=== PATIENT | female | born 1935 | race Caucasian/White ===

== ENCOUNTER 2020-01-25 13:48 | Inpatient (IN) | payer OTHER, MEDICARE, SELFPAY ==
[2020-01-25 13:55] VITALS: BP 158/57; PULSE 60; RESP 16; O2SAT 99; BMI 39.0
--- NOTE | 2020-01-25 15:34 | XR_ITS ---
WS: [id number] XR chest 1V portable [id number] REASON FOR EXAM: debility FINDINGS: The chest is unchanged compared to previous examination of 05/07/2017. Pacemaker in place over the left chest with leads to the right atrium and right ventricular apex. Mil d cardiac enlargement. Coronary stents. Calcified granulomatous changes in both hemithoraces. No active pulmonary parenchymal or pleural dise ase is noted. XR/XR chest 1V portable [id number] IMPRESSION: No acute chest abnormality.
--- NOTE | 2020-01-25 15:34 | CT_ITS ---
WS: [id number] CT ABDOMEN AND PELVIS NONCONTRAST HISTORY: sacral decubitus ulcer TECHNIQUE: Imaging performed through the abdomen and pelvis. Coronal and sagittal reformats are submi tted. All CT scans at [facility] use at least one of these dose optimization techniques: automated exposure control; mA and/or kV adjustment per patient size (includes targeted exams where d ose is matched to clinical indication); or iterative reconstruction. DLP: 1303.25 mGy.cm COMPARISON: 12/11/2017 Lower thorax: Lung bases are clear. Moderate cardiomegaly. Mitral annular calcification and small her pam. Artifact through the upper abdominal structures. No liver abnormality is detected. Gallbladder is sli ghtly contracted. Normal spleen. Mild pancreatic atrophy. No renal mass. There is extensive calcifica tion within a nondilated aorta. Vascular calcifications within each renal pelvis. No obstruction. Moderate distention of the stomach with air and food products. Mild diffuse constipation. No free flu id or ascites. Well-distended urinary bladder. By history there is a sacral decubitus ulcer. There is soft tissue thickening over the coccyx extending to the gluteal cleft. No destruction of the bone. P rior lumbar fusion surgery with large posterior laminectomy defects. Severe degenerative changes at t he hip joints bilaterally. Subchondral cystic changes with loss of the joint spaces. CT/CT abdomen pelvis wo con [id number] IMPRESSION: 1. No acute abdominal or pelvic abnormalities are identified. 2. Fluid and food distention of the stomach and diffuse constipation. 3. Limited evaluation of the sacral ulcer. The entire ulcerative tract is not entirely included. No evidence for osteomyelitis.
[2020-01-25 17:25] LABS: Basophils % 0.8 %; Eosinophils # 0.1 10^3/uL (0.0-0.8); Eosinophils % 1.9 %; Hematocrit 37.3 % (37.0-47.0); Hemoglobin 12.1 g/dL (11.5-15.3); Lymphocytes # 0.9 10^3/uL (0.8-4.8); Lymphocytes % 16.4 %; Mean Corpuscular HGB Conc 32.4 g/dL (30.0-36.0); Mean Corpuscular Hemoglobin 28.8 pg (28.0-34.0); Mean Corpuscular Volume 88.8 fL (81-99); Mean Platelet Volume 11.8 fL (7.4-10.4); Monocytes # 1.2 10^3/uL (0.2-0.9); Monocytes % 23.3 %; Neutrophils # 2.98 10^3/uL (1.8-7.7); Neutrophils % 56.8 %; Nucleated Red Blood Cells % 0 %; Platelet Count 158 10^3/cmm (130-400); Red Cell Distribution Width 13.2 % (12.1-15.1); White Blood Count 5.2 10^3/uL (4.0-10.0)
--- NOTE | 2020-01-25 17:29 | W.ED.RECABL ---
HPI - Recheck/Abnormal Lab/Rx General: Chief Complaint: Recheck/Abnormal Lab/Rx Stated Complaint: CONFUSION Time Seen by Provider: 01/25/20 14:21 Source: patient and EMS Mode of arrival: EMS Limitations: no limitations History of Present Illness: HPI narrative: The patient is an 84-year-old female patient who is on home hospice. From what I can gather she is on hospice for cardiac illness. Her main caregiver is her and he is unfortunately in the hospital on admission for COVID-19 pneumonia. She was apparently in the house and has been essentially bedridden for weeks. She is able to ambulate only short distances using 2 canes, and essentially just moved from the bed to the commode. She has apparently developed some decubitus ulcers and the patient states that she noticed them in the last few days. Home health nurse apparently felt she was confused and called for an ambulance. Review of Systems General: Reports: 10 or more systems reviewed and unremarkable except in HPI and below Const: Reports: malaise; Denies: fever(s), chills or body aches Eyes: Denies: change in vision or blurry vision ENMT: Denies: throat pain, enlarged tonsils, odynophagia, hoarseness, mouth pain or swelling of lips/tongue Card: Denies: palpitations, irregular heart rhythm, edema or swelling of feet/ankles Resp: Denies: dyspnea, productive cough or non-productive cough GI: Denies: abdominal pain, nausea or vomiting : Denies: flank pain, difficulty voiding, dysuria, urinary frequency, urinary urgency or urinary hesitancy Musc: Denies: neck pain, back pain or extremity swelling Skin/Breast: Reports: sores; Denies: rash, pruritus or erythema Neuro: Denies: headache(s), numbness in extremities or weakness in extremities Endo: Denies: polyuria, polydipsia or tired all the time PFSH ED PFSH: Medical History (Updated 01/26/20 @ 00:20 by Cortney Concepcion MD, [facility] [place]) ASHD (arteriosclerotic heart disease) Cardiomyopathy COPD (chronic obstructive pulmonary disease) Diabetes 1.5, managed as type 2 HTN (hypertension) Hypothyroidism Obesity SSS (sick sinus syndrome) Surgical History (Updated 01/25/20 @ 22:24 by Rianna Vallejo MD) Status cardiac pacemaker Family History Father CAD (coronary artery disease) Hypertension Myocardial infarction Mother CAD (coronary artery disease) Hypertension Myocardial infarction Physical Exam Const: COMMON NORMALS: no acute distress, average body habitus, patient oriented x3, no limitations, healthy appearing, alert and well nourished HENMT: COMMON NORMALS: normocephalic, atraumatic and moist oral mucous membranes HEAD & SCALP: normocephalic and atraumatic Neck/C-Spine: COMMON NORMALS: no meningeal signs and no JVD Resp: COMMON NORMALS: normal respiratory effort, No retractions, No use of accessory muscles, clear to auscultation bilaterally and percussion normal AUSCULTATION: clear to auscultation bilaterally PERCUSSION: percussion normal Cardio: COMMON NORMALS: no JVD, regular rate, regular rhythm, S1 normal heart sound present, S2 normal heart sound present, No gallops present (Cardio), No clicks present (Cardio), No murmurs present (Cardio), No rub (Cardio) and Peripheral pulses 2+ throughout RATE: regular rate RHYTHM: regular rhythm HEART SOUNDS: S1 normal heart sound present and S2 normal heart sound present PERIPHERAL PULSES: Peripheral pulses 2+ throughout GI: COMMON NORMALS: Normal to inspection, nondistended, normoactive bowel sounds present, Soft to palpation, non-tender, No hepatosplenomegaly present, no masses and no bruits PALPATION: Yes Soft to palpation and Yes No hepatosplenomegaly present Back/Pelvis: PELVIS: Yes buttock abnormal Buttock abnormal laterality: bilateral Bilateral buttock abnormal details: erythema and other (Bilateral decubitus ulcers, at least stage II. There is surrounding erythema and macerated skin but no obvious drainage noted.) Extremity: COMMON NORMALS: normal to inspection, full ROM, capillary refill normal, no calf tenderness and no pedal edema LEFT LOWER EXTREMITY: Yes ankle joint (Left heel with the decubitus ulcer, stage II) Neuro: COMMON NORMALS: patient oriented x3 SENSORIUM/ORIENTATION: Yes alert MENINGEAL SIGNS: Yes no meningeal signs Skin: COMMON NORMALS: no rashes or lesions noted, no wounds, turgor normal, no jaundice, no petechiae and no mottling GENERAL SKIN EXAM: no rashes or lesions noted and turgor normal Course ED course: Patient who presents to the emergency department has several decubitus ulcers. She is was given intravenous vancomycin in the emergency department and admitted for further evaluation and management Consultations: Consultation #1: Discussed the patient with Dr. Katerine Schaffer, hospitalist and she kindly accepted the patient to her service. Time: 19:58 Vital Signs: Vital signs: Vital Signs Temperature 98.3 F 01/25/20 23:58 Pulse Rate 59 L 01/25/20 23:58 Respiratory Rate 17 01/25/20 23:58 Blood Pressure 169/75 01/25/20 23:58 Pulse Oximetry 98 01/25/20 23:58 MDM - Recheck/Abnormal Lab/Rx MDM Narrative: Medical decision making narrative: 84-year-old female patient who is essentially bedridden and is on home hospice. Her career development facilitator is and he has been in the hospital with COVID-19. She has therefore not received as good daycare she normally gets. She has several decubitus ulcers and is admitted for further evaluation and management. Medical Records: Attestation: I reviewed the patient's medical records. Lab Data: Attestation: I reviewed the patient's lab results. Labs: Lab Results 01/25/20 01/25/20 01/25/20 Range/Units 17:11 17:11 17:11 WBC 5.2 (4.0-10.0) 10^3/ uL RBC 4.20 (4.1-5.3) 10^6/u L Hgb 12.1 (11.5-15.3) g/dL Hct 37.3 (37.0-47.0) % MCV 88.8 (81-99) fL MCH 28.8 (28.0-34.0) pg MCHC 32.4 (30.0-36.0) g/dL RDW 13.2 (12.1-15.1) % Plt Count 158 (130-400) 10^3/c mm MPV 11.8 H (7.4-10.4) fL Neut % (Auto) 56.8 % Lymph % (Auto) 16.4 % [place] % (Auto) 23.3 % Eos % (Auto) 1.9 % Baso % (Auto) 0.8 % Neut # (Auto) 2.98 (1.8-7.7) 10^3/u L Lymph # (Auto) 0.9 (0.8-4.8) 10^3/u L [place] # (Auto) 1.2 H (0.2-0.9) 10^3/u L Eos # (Auto) 0.1 (0.0-0.8) 10^3/u L Baso # (Auto) 0.0 (0.0-0.1) 10^3/u L Nucleated RBC % (a uto) 0 % Nucleated RBCs # 0.0 /100WBC Sodium 132 L (136-145) mmol/L Potassium 3.7 (3.5-5.1) mmol/L Chloride 94 L (98-107) mmol/L Carbon Dioxide 26 (22-29) mmol/L Anion Gap 15.7 (5-19) BUN 44 H (8-23) mg/dL Creatinine 1.5 H (0.5-0.9) mg/dL GFR Calculation Not Reportable Glucose 464 H (65-115) mg/dL Calculated Osmolal ity 305 H (285-295) mOsm/k g Lactate 1.9 (0.5-2.2) mmol/L Calcium 8.5 (8.5-10.5) mg/dL Total Bilirubin 0.3 (0.15-1.2) mg/dL AST 19 (0-32) U/L ALT 18 (0-33) U/L Alkaline Phosphata se 111 H (35-105) IU/L Creatine Kinase 178 (26-192) U/L C-Reactive Protein 21.6 H (0.0-4.9) mg/L Total Protein 6.0 L (6.6-8.7) g/dL Albumin 3.6 (3.5-5.2) g/dL Globulin 2.4 (1.3-4.6) g/dL Lipase 29 (13-60) U/L Procalcitonin 0.17 (0-0.5) ng/mL Urine Color (Yellow) Urine Appearance (CLEAR) Urine pH (5-7) Ur Specific Gravit y (1.005-1.030) Urine Protein (Negative) Urine Glucose (UA) (Normal) Urine Ketones (Negative) Urine Blood (Negative) Urine Nitrate (Negative) Urine Bilirubin (Negative) Urine Urobilinogen (Negative) mg/dL Ur Leukocyte Daija ase (Negative) Urine RBC (0-2) /hpf Urine WBC (0-5) /hpf Ur Squamous Epith Cells (0-5) /hpf Amorphous Sediment Urine Bacteria (NONE) /hpf 01/25/20 Range/Units 19:59 WBC (4.0-10.0) 10^3/ uL RBC (4.1-5.3) 10^6/u L Hgb (11.5-15.3) g/dL Hct (37.0-47.0) % MCV (81-99) fL MCH (28.0-34.0) pg MCHC (30.0-36.0) g/dL RDW (12.1-15.1) % Plt Count (130-400) 10^3/c mm MPV (7.4-10.4) fL Neut % (Auto) % Lymph % (Auto) % [place] % (Auto) % Eos % (Auto) % Baso % (Auto) % Neut # (Auto) (1.8-7.7) 10^3/u L Lymph # (Auto) (0.8-4.8) 10^3/u L [place] # (Auto) (0.2-0.9) 10^3/u L Eos # (Auto) (0.0-0.8) 10^3/u L Baso # (Auto) (0.0-0.1) 10^3/u L Nucleated RBC % (a uto) % Nucleated RBCs # /100WBC Sodium (136-145) mmol/L Potassium (3.5-5.1) mmol/L Chloride (98-107) mmol/L Carbon Dioxide (22-29) mmol/L Anion Gap (5-19) BUN (8-23) mg/dL Creatinine (0.5-0.9) mg/dL GFR Calculation Glucose (65-115) mg/dL Calculated Osmolal ity (285-295) mOsm/k g Lactate (0.5-2.2) mmol/L Calcium (8.5-10.5) mg/dL Total Bilirubin (0.15-1.2) mg/dL AST (0-32) U/L ALT (0-33) U/L Alkaline Phosphata se (35-105) IU/L Creatine Kinase (26-192) U/L C-Reactive Protein (0.0-4.9) mg/L Total Protein (6.6-8.7) g/dL Albumin (3.5-5.2) g/dL Globulin (1.3-4.6) g/dL Lipase (13-60) U/L Procalcitonin (0-0.5) ng/mL Urine Color Yellow (Yellow) Urine Appearance Sl hazy (CLEAR) Urine pH 7 (5-7) Ur Specific Gravit y 1.005 (1.005-1.030) Urine Protein Neg (Negative) Urine Glucose (UA) 4+ H (Normal) Urine Ketones Negative (Negative) Urine Blood Neg (Negative) Urine Nitrate Negative (Negative) Urine Bilirubin Neg (Negative) Urine Urobilinogen Norm (Negative) mg/dL Ur Leukocyte Daija ase 2+ H (Negative) Urine RBC None (0-2) /hpf Urine WBC >100 H (0-5) /hpf Ur Squamous Epith Cells None (0-5) /hpf Amorphous Sediment Not Reportable Urine Bacteria 4+ H (NONE) /hpf Discharge Plan Discharge Patient Disposition: Admitted As Inpatient Admit Provider: Rianna Vallejo Clinical Impression: Pressure ulcer, Physical deconditioning Condition: Stable Coding Level of Care Code ED Condominium Association Manager for [employer] Fwd Exam Comprehensive
[2020-01-25 17:43] LABS: Alanine Aminotransferase 18 U/L (0-33); Albumin Level 3.6 g/dL (3.5-5.2); Alkaline Phosphatase 111 IU/L (35-105); Anion Gap 15.7 (5-19); Aspartate Amino Transferase 19 U/L (0-32); Blood Urea Nitrogen 44 mg/dL (8-23); C Reactive Protein 21.6 mg/L (0.0-4.9); Calcium 8.5 mg/dL (8.5-10.5); Carbon Dioxide 26 mmol/L (22-29); Chloride 94 mmol/L (98-107); Creatine Phosphokinase 178 U/L (26-192); Globulin 2.4 g/dL (1.3-4.6); Glucose 464 mg/dL (65-115); Lactate (Lactic Acid level) 1.9 mmol/L (0.5-2.2); Lipase 29 U/L (13-60); Osmolality Calculated 305 mOsm/kg (285-295); Potassium 3.7 mmol/L (3.5-5.1); Sodium 132 mmol/L (136-145); Total Bilirubin 0.3 mg/dL (0.15-1.2)
[2020-01-25 18:07] LABS: Procalcitonin 0.17 ng/mL (0-0.5)
[2020-01-25 20:17] LABS: Add Urine Microscopic? YES; Bilirubin Urine Neg (Negative); Blood Urine Neg (Negative); Glucose Urine UA 4+ (Normal); Ketones Urine Negative (Negative); Nitrate Urine Negative (Negative); Protein Urine Neg (Negative); Specific Gravity, Urine 1.005 (1.005-1.030); Urine Appearance SL Hazy (CLEAR); Urine Color Yellow (Yellow); Urobilinogen Urine Norm (Negative); pH Urine 7 (5-7)
[2020-01-25 20:18] LABS: Add Urine Culture? Yes; Bacteria Urine 4+ /hpf; Leukocyte Esterase Urine 2+ (Negative); WBC Urine >100 /hpf (0-5)
[2020-01-25 20:32] VITALS: O2SAT 92
[2020-01-25 20:54] LABS: SARS Covid-2 Antigen Negative (Negative)
[2020-01-25] MEDS: vancomycin 1,000 MG in sodium chloride 0.9% 250 ML 250 MG IV (21:11)
[2020-01-25 21:12] VITALS: PULSE 60; O2SAT 97
[2020-01-25 21:51] VITALS: BP 152/75; PULSE 60; RESP 18; TEMP 36.8; O2SAT 99
--- NOTE | 2020-01-25 21:55 | PC.NURSE ---
is the patients main care take, however, the is a patient at [facility].
--- NOTE | 2020-01-25 22:13 | PC.NURSE ---
Patient arrived from the ED under no distress via stretcher.
--- NOTE | 2020-01-25 22:15 | P.HP_ITS ---
Providers/Chief Complaint Admitting Physician: Rianna Vallejo MD Primary Care Provider: Donte Torres MD Chief Complaint: CONFUSION History of Present Illness Gillian Sunshine is a 84 year old female with HTN, insulin-dependent DM type II, Ischemic cardiomyopathy, Chronic combined CHF, paroxysmal atrial fibrillation (off AC), Hypothyroidism, SSS s/p pacemaker, CKD stage 2-3, oxygen-dependent (3 L at baseline) currently on home hospice for advanced cardiac illnesses. She presented today after being sent by hospice nurse due to overall functional decline, reportedly noted to be confused earlier today, being alone at home as her primary caregiver who is her is currently admitted here for COVID and fractures. Per review of PMD notes, her daughter has expressive aphasia. P atient states she is unable to care for herself at home, has noted decubitus ulcers but is unable to tell me how long they have been present. She is interested in facility placement due to not currently having any care givers. Review of Systems General: Reports: 10 or more systems reviewed and unremarkable except in HPI and below Const: Denies: fever(s), chills or body aches Eyes: Denies: change in vision, blurry vision or photophobia ENMT: Reports: hoarseness; Denies: throat pain, enlarged tonsils, odynophagia or nasal congestion Card: Denies: chest pain, palpitations, irregular heart rhythm, edema, swelling of feet/ankles, lightheadedness, pre-syncope, dyspnea on exertion or orthopnea Resp: Denies: dyspnea, productive cough, non-productive cough, wheezing, stridor, pain on inspiration, change in phlegm color, hemoptysis or chest congestion GI: Denies: abdominal pain, nausea, vomiting, hematemesis, coffee ground emesis, dysphagia, heartburn, diarrhea, constipation, GI cramping, change in stool character, hematochezia or melena : Denies: flank pain, difficulty voiding, dysuria, urinary frequency, urinary urgency, urinary hesitancy or hematuria Musc: Denies: neck pain, back pain, extremity pain, joint swelling, joint warmth or deformity Neuro: Denies: headache(s), numbness in extremities, weakness in extremities, sensory changes, difficulty walking, frequent falls, dizziness, vertigo, behavioral changes, Slurred speech present or seizure-like activity Psych: Denies: anxiety, depression, suicidal ideation or homicidal ideation Endo: Denies: polyuria, polydipsia, tired all the time, cold intolerance or hot flashes Bill/Lymph: Denies: easy bruising or easy bleeding Medications/Allergies Home Medications Medication Instructions Recorded Confirmed Last Taken Type albuterol sulfate 2.5 mg INHALATION Q4H PRN 04/29/19 01/25/20 Unknown History clopidogrel 75 mg tablet 75 mg PO DAILY 04/29/19 01/25/20 Unknown History losartan 25 mg tablet 25 mg PO BID #60 tab 06/14/19 01/25/20 Unknown Rx pantoprazole 40 mg tablet,delayed 40 mg PO DAILY #14 tab 07/14/19 01/25/20 Unknown Rx release glimepiride 4 mg tablet 4 mg PO BID #60 tab 09/01/19 01/25/20 Unknown Rx allopurinol 300 mg tablet 300 mg PO DAILY #90 tab 09/19/19 01/25/20 Unknown Rx furosemide 80 mg tablet 80 mg PO BID #60 tab 10/06/19 01/25/20 Unknown Rx isosorbide mononitrate 60 mg 60 mg PO DAILY 90 Days #90 tab 12/08/19 01/25/20 Unknown Rx tablet,extended release 24 hr trazodone 50 mg tablet 50 mg PO TID #270 tab 12/14/19 01/25/20 Unknown Rx citalopram 10 mg tablet 10 mg PO DAILY #14 tab 12/16/19 01/25/20 Unknown Rx Advil 1 - 2 tab PO Q6H PRN 01/25/20 01/25/20 Unknown History bisacodyl 5 - 10 mg PO DAILY PRN 01/25/20 01/25/20 Unknown History docusate sodium 100 mg PO BEDTIME 01/25/20 01/25/20 Unknown History hydrocortisone [Anusol-HC] See Rx Instructions .ROUTE .COMPLEX 01/25/20 01/25/20 Unknown History levothyroxine 75 mcg PO DAILY 01/25/20 01/25/20 Unknown History lorazepam [Ativan] 0.5 mg PO Q6H PRN 01/25/20 01/25/20 Unknown History metoprolol succinate 25 mg PO BID 01/25/20 01/25/20 Unknown History morphine 15 mg PO Q8H PRN 01/25/20 01/25/20 Unknown History morphine 30 mg PO BID 01/25/20 01/25/20 Unknown History nitroglycerin 0.4 mg SUBLINGUAL Q5M PRN 01/25/20 01/25/20 Unknown History polyethylene glycol 3350 [Miralax] 17 g PO DAILY 01/25/20 01/25/20 Unknown History promethazine 25 mg PO Q4H PRN 01/25/20 01/25/20 Unknown History Allergies Allergy/AdvReac Type Severity Reaction Status Date / Time acetaminophen [From [place]] Allergy Unknown Verified 01/25/20 15:26 amoxicillin Allergy Unknown Verified 01/25/20 15:26 hydrocodone [From [place]] Allergy Unknown Verified 01/25/20 15:26 Penicillins Allergy Unknown Verified 01/25/20 15:25 Sulfa (Sulfonamide Allergy Unknown Verified 01/25/20 15:27 Antibiotics) tramadol Allergy Unknown Verified 01/25/20 15:27 PFSH Acute PFSH: Medical History ASHD (arteriosclerotic heart disease) SSS (sick sinus syndrome) Surgical History (Updated 01/25/20 @ 22:24 by Rianna Vallejo MD) Status cardiac pacemaker Family History Father CAD (coronary artery disease) Hypertension Myocardial infarction Mother CAD (coronary artery disease) Hypertension Myocardial infarction Vitals/I&O/Wt Last Vital Signs Temp 98.2 F 01/25/20 21:51 Pulse 60 01/25/20 21:51 Resp 18 01/25/20 21:51 BP 152/75 01/25/20 21:51 Pulse Ox 99 01/25/20 21:51 01/25/20 01/25/20 01/25/20 06:59 14:59 22:59 Output Total 1000 / 1000 Balance -1000 / -1000 Weight last 48 hrs Weight 85.094 kg Weight 90.718 kg Physical Exam Narrative: EXAM NARRATIVE: GEN: Awake, alert and oriented, no acute distress CVS: S1S2 N RS: CTA B/L Abd: Soft, nt/nd , bs+ FREELANCE MAKEUP ARTIST: no focal neuro deficits Urinary Catheter Management^: Barragan: Cath Placed During This Visit: yes Urinary Catheter Date of Insertion: 01/25/20 Urinary Catheter Time of Insertion: 19:30 Data : 01/25/20 17:11 01/25/20 17:11 Micro: Microbiology 01/25/20 17:40 Blood Culture - Preliminary Blood SPECIMEN COLLECTED 01/25/20 17:50 Blood Culture - Preliminary Blood SPECIMEN COLLECTED A&P Assessment and plan (1) ASHD (arteriosclerotic heart disease): 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 care Continue home medicatiosn including Plavix, Lasix, Imdur, losartan Status: Acute (2) Hospice care: Case management consult for placement potentially at facility as patient is unable to have a caregiver at home currently Status: Acute (3) COPD (chronic obstructive pulmonary disease): Not currently exacerbated Continue home doses of albuterol Status: Inactive (4) Diabetes: Uncontrolled blood sugar, currently at 464, start insulin sliding scale Status: Acute (5) Pressure ulcer: frequent repositioning, wet to dry dressing Status: Acute (6) UTI (urinary tract infection): + UA, may be contributing to confusion Start CTX empirically and check urine cx Status: Acute Attestations Medical Necessity Statement*: anticipate >2MN admission for disposition planning, UTI needing abx, uncontrolled blood sugar Coding Level of Care Code Acute Senior Research Executive for [facility] Fwd Diagnoses ASHD (arteriosclerotic heart disease) I25.10 Hospice care Z51.5 COPD (chronic obstructive pulmonary disease) J44.9 Diabetes E11.9 Pressure ulcer L89.90 UTI (urinary tract infection) N39.0
[2020-01-25] MEDS: cefTRIAXone 1,000 MG in sodium chloride 0.9% (plus) 50 ML 100 MG IV (23:40)
[2020-01-25 23:58] VITALS: BP 169/75; PULSE 59; RESP 17; TEMP 36.8; O2SAT 98
[2020-01-26] VITALS (9 sets, daily range): BP systolic 107–151; BP diastolic 52–74; PULSE 59–66; RESP 16–18; TEMP 36.2–37.5; O2SAT 93–97
[2020-01-26 01:28] LABS: Glucose Point of Care 340 mg/dL (70-110)
[2020-01-26] MEDS: morphine IR 15 mg Tablet PO ×2 (03:16→11:57)
[2020-01-26] MEDS: cyclobenzaprine 10 mg Tablet PO (03:47)
--- NOTE | 2020-01-26 04:35 | PC.NURSE ---
Patient was complaining of pain, loud enough to be heard at the nurses station. Patient was admin morphine per apr, however, this did nothing to the stop the pain. Dr Vallejo order flexeril 10mg PO, read back successful.
--- NOTE | 2020-01-26 05:22 | NUR.SHIFT ---
Patient has had pain throughout the night related to her left hip and leg, positioning did not assist the patient. After receiving flexeril, the patient's pain became well controlled. After which the patient slept.
[2020-01-26 05:55] LABS: Basophils % 0.6 %; Eosinophils # 0.1 10^3/uL (0.0-0.8); Eosinophils % 1.7 %; Hemoglobin 12.4 g/dL (11.5-15.3); Lymphocytes # 1.2 10^3/uL (0.8-4.8); Lymphocytes % 17.7 %; Mean Corpuscular HGB Conc 32.6 g/dL (30.0-36.0); Mean Corpuscular Hemoglobin 28.4 pg (28.0-34.0); Mean Corpuscular Volume 87.2 fL (81-99); Monocytes # 1.1 10^3/uL (0.2-0.9); Monocytes % 16.5 %; Neutrophils # 4.08 10^3/uL (1.8-7.7); Nucleated Red Blood Cells % 0 %; Platelet Count 169 10^3/cmm (130-400); Red Blood Count 4.36 10^6/uL (4.1-5.3); Red Cell Distribution Width 12.8 % (12.1-15.1); White Blood Count 6.5 10^3/uL (4.0-10.0)
[2020-01-26 06:16] LABS: Alanine Aminotransferase 17 U/L (0-33); Albumin Level 3.4 g/dL (3.5-5.2); Alkaline Phosphatase 88 IU/L (35-105); Anion Gap 17.1 (5-19); Aspartate Amino Transferase 18 U/L (0-32); Blood Urea Nitrogen 32 mg/dL (8-23); Calcium 8.3 mg/dL (8.5-10.5); Carbon Dioxide 25 mmol/L (22-29); Chloride 94 mmol/L (98-107); Globulin 2.6 g/dL (1.3-4.6); Glucose 297 mg/dL (65-115); Osmolality Calculated 294 mOsm/kg (285-295); Potassium 3.1 mmol/L (3.5-5.1); Sodium 133 mmol/L (136-145); Total Bilirubin 0.3 mg/dL (0.15-1.2)
[2020-01-26 06:26] LABS: Thyroid Stimulating Hormone 1.14 uIU/mL (0.27-4.20)
[2020-01-26 06:33] LABS: Glucose Point of Care 293 mg/dL (70-110)
[2020-01-26 07:25] LABS: Estmated Average Glucose 321; Hemoglobin A1C 12.8 % (4.0-6.0)
[2020-01-26] MEDS: allopurinol 300 mg Tablet PO (08:41)
[2020-01-26] MEDS: losartan 50 mg Tablet 25 MG PO ×2 (08:41→17:27)
[2020-01-26] MEDS: levothyroxine 150 mcg Tablet 75 MCG PO (08:42)
[2020-01-26] MEDS: pantoprazole DR 40 mg Tablet PO (08:42)
[2020-01-26] MEDS: isosorbide mononitrate ER 60 mg Tablet PO (08:42)
[2020-01-26] MEDS: FUROsemide 40 mg Tablet 80 MG PO ×2 (08:42→17:27)
[2020-01-26] MEDS: citalopram 20 mg Tablet 10 MG PO (08:42)
[2020-01-26] MEDS: metoprolol succinate ER (24 HR) 25 mg Tablet PO ×2 (08:42→17:27)
[2020-01-26] MEDS: clopidogrel 75 mg Tablet PO (08:43)
[2020-01-26] MEDS: polyethylene glycol 3350 Pkt 17 gm PO (08:43)
[2020-01-26] MEDS: trazodone 50 mg Tablet PO ×3 (08:43→20:21)
[2020-01-26] MEDS: morphine ER (12 HR) 30 mg tablet PO (08:43)
[2020-01-26] MEDS: potassium chloride ER 20 mEq Tablet PO ×2 (09:31→20:21)
--- NOTE | 2020-01-26 11:24 | PC.NURSE ---
Patient refused novolog coverage. Physician notified.
--- NOTE | 2020-01-26 11:57 | PC.NURSE ---
Patient reports pain of 5 on 0-10 pain scale, generalized mostly my legs but all over PRN morphine given per doctors orders, see MAR for further details.
[2020-01-26 12:57] LABS: Glucose Point of Care 230 mg/dL (70-110)
--- NOTE | 2020-01-26 13:37 | P.PN_ITS ---
Subjective Subjective: Interval history: This morning patient was examined, she tells me that she is having some back pain, no chills, no nausea, no vomiting, she cannot take care of herself, as her is admitted to the hospital has dementia and COVID-19, she needs to go to a halfway she tells me, she wishes she can go with her . In terms of her morphine, she tells me that she uses 15 mg every 8 hours as needed for pain. She typically uses it twice daily, if she has severe breakthrough pain then she will take an extra 15 mg. And if she continues to have severe pain, she will then take a 30 mg tablet. She is on hospice for heart failure. Vitals/I&O/Wt Last Vital Signs Temp 98.3 F 01/26/20 11:33 Pulse 59 L 01/26/20 11:33 Resp 16 01/26/20 11:57 BP 107/65 01/26/20 11:33 Pulse Ox 93 01/26/20 11:33 01/25/20 01/26/20 01/26/20 22:59 06:59 14:59 Intake Total 480 / 480 Output Total 1000 / 1000 700 / 1700 Balance -1000 / -1000 -700 / -1700 480 / 480 Weight last 48 hrs Weight 85.094 kg Weight 90.718 kg Physical Exam Const: COMMON NORMALS: no acute distress and patient oriented x3 GENERAL A PPEARANCE: ill appearing and frail appearing HENMT: COMMON NORMALS: normocephalic HEAD & SCALP: normocephalic Neck/C-Spine: COMMON NORMALS: no JVD Resp: COMMON NORMALS: normal respiratory effort, No retractions, No use of accessory muscles and clear to auscultation bilaterally AUSCULTATION: clear to auscultation bilaterally Cardio: COMMON NORMALS: no JVD, regular rate, regular rhythm, S1 normal heart sound present and S2 normal heart sound present RATE: regular rate RHYTHM: regular rhythm HEART SOUNDS: S1 normal heart sound present and S2 normal heart sound present GI: COMMON NORMALS: Normal to inspection, nondistended, normoactive bowel sounds present, Soft to palpation, non-tender, No hepatosplenomegaly present, no masses and no bruits PALPATION: Yes Soft to palpation and Yes No hepatosplenomegaly present Extremity: COMMON NORMALS: capillary refill normal, no clubbing, cyanosis or edema, no calf tenderness and no pedal edema Neuro: COMMON NORMALS: patient oriented x3 Urinary Catheter Management^: Barragan: Cath Placed During This Visit: yes Reason for Continuing Indwelling Catheter: Accurate Measurement of Urinary Output in Critically Ill Patients Urinary Catheter Date of Insertion: 01/25/20 Urinary Catheter Time of Insertion: 19:30 Data : 01/26/20 05:21 01/26/20 05:21 Micro: Microbiology 01/25/20 17:40 Blood Culture - Preliminary Blood SPECIMEN COLLECTED 01/25/20 17:50 Blood Culture - Preliminary Blood SPECIMEN COLLECTED A&P Assessment and plan (1) ASHD (arteriosclerotic heart disease): 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 care Continue home medicatiosn including Plavix, Lasix, Imdur, losartan Status: Acute (2) Hospice care: Case management consult for placement potentially at facility as patient is unable to have a caregiver at home currently Working on halfway placement Status: Acute (3) COPD (chronic obstructive pulmonary disease): Not currently exacerbated Continue home doses of albuterol Status: Inactive (4) Diabetes: Uncontrolled blood sugar, currently at 464, start insulin sliding scale Status: Acute (5) Pressure ulcer: frequent repositioning, wet to dry dressing Status: Acute Qualifiers: Laterality: unspecified laterality Pressure injury location: buttock Pressure injury stage: stage 2 Qualified Code(s): L89.302 - Pressure ulcer of unspecified buttock, stage 2 (6) UTI (urinary tract infection): + UA, may be contributing to confusion Start CTX empirically and check urine cx Status: Acute Additional A&P Information Working on halfway placement for today Attestations Medical Necessity Statement*: Patient requires hospitalization, for weakness, fatigue, requiring halfway placement, already on hospice Coding Level of Care Code Acute Control Equipment Electrician for [facility] Fwd Diagnoses ASHD (arteriosclerotic heart disease) I25.10 Hospice care Z51.5 COPD (chronic obstructive pulmonary disease) J44.9 Diabetes E11.9 Pressure ulcer L89.302 Laterality: unspecified laterality Pressure injury location: buttock Pressure injury stage: stage 2 UTI (urinary tract infection) N39.0
[2020-01-26] MEDS: ibuprofen 200 mg Tablet PO (14:53)
[2020-01-26] MEDS: LORazepam 0.5 mg Tablet PO (14:53)
--- NOTE | 2020-01-26 14:53 | PC.NURSE ---
Patient reports pain at 6 on 0-10 pain scale, motrin given, see MAR for further details, patient is restless and anxious, PRN ativan given, see MAR for further details.
--- NOTE | 2020-01-26 15:49 | PC.NURSE ---
Received report from Shanell Paiz RN, assumed care of patient, in to see patient, discussed plan of care, patient resting in bed, call light in reach, positioned with pillows for pressure relief, side rails up X2.
--- NOTE | 2020-01-26 15:54 | PC.NURSE ---
Patient resting with eyes closed, equal rise and fall of chest, continue turning Q2 hours for pressure relief and heels floated bilaterally with a pillow, call light in reach, side rails up X2.
[2020-01-26 17:14] LABS: Glucose Point of Care 392 mg/dL (70-110)
[2020-01-26] MEDS: docusate sodium 100 mg Capsule PO (20:21)
[2020-01-26 20:39] LABS: Glucose Point of Care 324 mg/dL (70-110)
[2020-01-26] MEDS: cefTRIAXone 1,000 MG in sodium chloride 0.9% (plus) 50 ML 100 MG IV (22:43)
[2020-01-27] VITALS (8 sets, daily range): BP systolic 126–159; BP diastolic 66–81; PULSE 59–67; RESP 16–18; TEMP 36.4–37.7; O2SAT 93–98
[2020-01-27 06:05] LABS: Basophils % 0.6 %; Eosinophils # 0.2 10^3/uL (0.0-0.8); Eosinophils % 4.2 %; Hematocrit 37.1 % (37.0-47.0); Lymphocytes # 1.5 10^3/uL (0.8-4.8); Lymphocytes % 29.2 %; Mean Corpuscular HGB Conc 32.3 g/dL (30.0-36.0); Mean Corpuscular Volume 89.6 fL (81-99); Monocytes # 0.8 10^3/uL (0.2-0.9); Monocytes % 16.1 %; Neutrophils # 2.46 10^3/uL (1.8-7.7); Neutrophils % 49.5 %; Nucleated Red Blood Cells % 0 %; Platelet Count 148 10^3/cmm (130-400); Red Blood Count 4.14 10^6/uL (4.1-5.3); Red Cell Distribution Width 13.2 % (12.1-15.1)
--- NOTE | 2020-01-27 06:39 | NUR.SHIFT ---
Patient has had an uneventful night, she has been updated about the condition of her .
[2020-01-27 06:43] LABS: Alanine Aminotransferase 17 U/L (0-33); Albumin Level 3.1 g/dL (3.5-5.2); Alkaline Phosphatase 78 IU/L (35-105); Anion Gap 14.1 (5-19); Aspartate Amino Transferase 17 U/L (0-32); Blood Urea Nitrogen 39 mg/dL (8-23); Calcium 8.3 mg/dL (8.5-10.5); Carbon Dioxide 26 mmol/L (22-29); Chloride 96 mmol/L (98-107); Globulin 2.5 g/dL (1.3-4.6); Glucose 209 mg/dL (65-115); Osmolality Calculated 290 mOsm/kg (285-295); Potassium 4.1 mmol/L (3.5-5.1); Sodium 132 mmol/L (136-145); Total Bilirubin 0.3 mg/dL (0.15-1.2); Total Protein 5.6 g/dL (6.6-8.7)
[2020-01-27 06:44] LABS: Glucose Point of Care 224 mg/dL (70-110)
[2020-01-27] MEDS: polyethylene glycol 3350 Pkt 17 gm PO (08:03)
[2020-01-27] MEDS: losartan 50 mg Tablet 25 MG PO ×2 (08:03→17:26)
[2020-01-27] MEDS: potassium chloride ER 20 mEq Tablet PO ×2 (08:03→22:49)
[2020-01-27] MEDS: levothyroxine 150 mcg Tablet 75 MCG PO (08:03)
[2020-01-27] MEDS: isosorbide mononitrate ER 60 mg Tablet PO (08:03)
[2020-01-27] MEDS: allopurinol 300 mg Tablet PO (08:03)
[2020-01-27] MEDS: citalopram 20 mg Tablet 10 MG PO (08:03)
[2020-01-27] MEDS: trazodone 50 mg Tablet PO ×3 (08:04→22:49)
[2020-01-27] MEDS: clopidogrel 75 mg Tablet PO (08:04)
[2020-01-27] MEDS: metoprolol succinate ER (24 HR) 25 mg Tablet PO ×2 (08:04→17:26)
[2020-01-27] MEDS: pantoprazole DR 40 mg Tablet PO (08:04)
[2020-01-27] MEDS: FUROsemide 40 mg Tablet 80 MG PO ×2 (08:04→17:26)
--- NOTE | 2020-01-27 08:52 | PC.NURSE ---
Patient repositioned and sat up in high fowlers for morning medication and breakfast, alert and oriented, decreased energy noted, heels floated with pillow to prevent skin breakdown.
[2020-01-27 11:26] LABS: Glucose Point of Care 249 mg/dL (70-110)
--- NOTE | 2020-01-27 12:31 | P.PN_ITS ---
Subjective Subjective: Interval history: This morning patient was examined, she is laying in bed, she tells me she is doing better, her pain is well controlled, she is awaiting prison placement, has no particular complaints this morning Vitals/I&O/Wt Last Vital Signs Temp 98.4 F 01/27/20 12:00 Pulse 60 01/27/20 12:00 Resp 18 01/27/20 12:00 BP 126/81 01/27/20 12:00 Pulse Ox 98 01/27/20 12:00 01/26/20 01/27/20 01/27/20 22:59 06:59 14:59 Intake Total 840 / 1320 240 / 240 Output Total 650 / 650 850 / 1500 Balance 190 / 670 -850 / -180 240 / 240 Weight last 48 hrs Weight 85.094 kg Weight 90.718 kg Physical Exam Const: COMMON NORMALS: no acute distress and patient oriented x3 HENMT: COMMON NORMALS: normocephalic HEAD & SCALP: normocephalic Neck/C-Spine: COMMON NORMALS: no JVD Resp: COMMON NORMALS: normal respiratory effort, No retractions, No use of accessory muscles and clear to auscultation bilaterally AUSCULTATION: clear to auscultation bilaterally Cardio: COMMON NORMALS: no JVD, regular rate, regular rhythm, S1 normal heart sound present and S2 normal heart sound present RATE: regular rate RHYTHM: regular rhythm HEART SOUNDS: S1 normal heart sound present and S2 normal heart sound present GI: COMMON NORMALS: Normal to inspection, nondistended, normoactive bowel sounds present, Soft to palpation, non-tender, No hepatosplenomegaly present, no masses and no bruits PALPATION: Yes Soft to palpation and Yes No hepatosplenomegaly present Extremity: COMMON NORMALS: capillary refill normal, no clubbing, cyanosis or edema, no calf tenderness and no pedal edema Neuro: COMMON NORMALS: patient oriented x3 Psych: COMMON NORMALS: mental status grossly normal Urinary Catheter Management^: Barragan: Cath Placed During This Visit: yes Reason for Continuing Indwelling Catheter: Accurate Measurement of Urinary Output in Critically Ill Patients Urinary Catheter Date of Insertion: 01/25/20 Urinary Catheter Time of Insertion: 19:30 Data : 01/27/20 05:30 01/27/20 05:30 Micro: Microbiology 01/25/20 19:59 Urine Culture - Final Urine,Clean Catch Klebsiella pneumoniae 01/25/20 17:40 Blood Culture - Preliminary Blood NEGATIVE TO DATE 01/25/20 17:50 Blood Culture - Preliminary Blood NEGATIVE TO DATE A&P Assessment and plan (1) ASHD (arteriosclerotic heart disease): 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 care Continue home medicatiosn including Plavix, Lasix, Imdur, losartan Status: Acute (2) Hospice care: Case management consult for placement potentially at facility as patient is unable to have a caregiver at home currently Working on prison placement Status: Acute (3) COPD (chronic obstructive pulmonary disease): Not currently exacerbated Continue home doses of albuterol Status: Inactive (4) Diabetes: Uncontrolled blood sugar, currently at 464, start insulin sliding scale Status: Acute (5) Pressure ulcer: frequent repositioning, wet to dry dressing Status: Acute Qualifiers: Laterality: unspecified laterality Pressure injury location: buttock Pressure injury stage: stage 2 Qualified Code(s): L89.302 - Pressure ulcer of unspecified buttock, stage 2 (6) UTI (urinary tract infection): + UA, may be contributing to confusion Start CTX empirically and check urine cx Status: Acute Additional A&P Information Working on prison placement for today Attestations Medical Necessity Statement*: Requires hospitalization prison, is hospice Coding Level of Care Code Acute Machine Paint Mixer for [facility] Fwd Diagnoses ASHD (arteriosclerotic heart disease) I25.10 Hospice care Z51.5 COPD (chronic obstructive pulmonary disease) J44.9 Diabetes E11.9 Pressure ulcer L89.302 Laterality: unspecified laterality Pressure injury location: buttock Pressure injury stage: stage 2 UTI (urinary tract infection) N39.0
--- NOTE | 2020-01-27 13:24 | PC.NURSE ---
Patient resting comfortably in bed with eyes closed, equal rise and fall of chest, awakens easily when enters the room, call light in reach, side rails up X2.
[2020-01-27 17:35] LABS: Glucose Point of Care 322 mg/dL (70-110)
[2020-01-27 21:55] LABS: Glucose Point of Care 356 mg/dL (70-110)
[2020-01-27] MEDS: docusate sodium 100 mg Capsule PO (22:49)
[2020-01-27] MEDS: cefTRIAXone 1,000 MG in sodium chloride 0.9% (plus) 50 ML 100 MG IV (22:49)
[2020-01-27] MEDS: ibuprofen 200 mg Tablet PO (23:55)
[2020-01-28] VITALS (10 sets, daily range): BP systolic 103–159; BP diastolic 53–69; PULSE 59–80; RESP 16–20; TEMP 36.6–37.2; O2SAT 96–98
[2020-01-28] MEDS: morphine IR 15 mg Tablet PO ×2 (03:52→22:16)
[2020-01-28 04:42] LABS: Basophils % 0.4 %; Eosinophils # 0.1 10^3/uL (0.0-0.8); Eosinophils % 1.7 %; Hematocrit 36.5 % (37.0-47.0); Hemoglobin 11.9 g/dL (11.5-15.3); Lymphocytes # 1.3 10^3/uL (0.8-4.8); Mean Corpuscular HGB Conc 32.6 g/dL (30.0-36.0); Mean Corpuscular Hemoglobin 28.3 pg (28.0-34.0); Mean Corpuscular Volume 86.7 fL (81-99); Mean Platelet Volume 11.6 fL (7.4-10.4); Monocytes # 0.7 10^3/uL (0.2-0.9); Monocytes % 12.9 %; Neutrophils # 3.14 10^3/uL (1.8-7.7); Neutrophils % 59.6 %; Nucleated Red Blood Cells % 0 %; Platelet Count 167 10^3/cmm (130-400); Red Blood Count 4.21 10^6/uL (4.1-5.3); Red Cell Distribution Width 12.7 % (12.1-15.1); White Blood Count 5.3 10^3/uL (4.0-10.0)
[2020-01-28 04:59] LABS: Alanine Aminotransferase 18 U/L (0-33); Albumin Level 3.3 g/dL (3.5-5.2); Alkaline Phosphatase 72 IU/L (35-105); Anion Gap 17.8 (5-19); Aspartate Amino Transferase 17 U/L (0-32); Blood Urea Nitrogen 36 mg/dL (8-23); Calcium 8.4 mg/dL (8.5-10.5); Carbon Dioxide 21 mmol/L (22-29); Chloride 96 mmol/L (98-107); Globulin 2.7 g/dL (1.3-4.6); Glucose 230 mg/dL (65-115); Osmolality Calculated 288 mOsm/kg (285-295); Potassium 3.8 mmol/L (3.5-5.1); Sodium 131 mmol/L (136-145); Total Bilirubin 0.3 mg/dL (0.15-1.2)
[2020-01-28 06:35] LABS: Glucose Point of Care 219 mg/dL (70-110)
--- NOTE | 2020-01-28 09:20 | PC.SOCIAL ---
Pg 2 IMM Explained to pt via phone, Pg 2 IMM. No questions voiced. Provided a copy to pt care nurse to give to pt. Signed, dated, & timed a copy & placed in chart.
[2020-01-28] MEDS: FUROsemide 40 mg Tablet 80 MG PO (09:45)
[2020-01-28] MEDS: levothyroxine 150 mcg Tablet 75 MCG PO (09:45)
[2020-01-28] MEDS: metoprolol succinate ER (24 HR) 25 mg Tablet PO ×2 (09:45→18:41)
[2020-01-28] MEDS: pantoprazole DR 40 mg Tablet PO (09:46)
[2020-01-28] MEDS: allopurinol 300 mg Tablet PO (09:46)
[2020-01-28] MEDS: citalopram 20 mg Tablet 10 MG PO (09:46)
[2020-01-28] MEDS: clopidogrel 75 mg Tablet PO (09:46)
[2020-01-28] MEDS: losartan 50 mg Tablet 25 MG PO ×2 (09:46→18:41)
[2020-01-28] MEDS: trazodone 50 mg Tablet PO ×3 (09:46→21:56)
[2020-01-28] MEDS: isosorbide mononitrate ER 60 mg Tablet PO (09:47)
[2020-01-28] MEDS: polyethylene glycol 3350 Pkt 17 gm PO (09:47)
[2020-01-28] MEDS: potassium chloride ER 20 mEq Tablet PO ×2 (09:47→21:56)
[2020-01-28 12:17] LABS: Glucose Point of Care 335 mg/dL (70-110)
--- NOTE | 2020-01-28 13:01 | PM.PN ---
Subjective Subjective: Interval history: This morning patient was examined, she has no particular complaints, no fevers, chills, she is wondering how her is doing, she is Covid positive, no chest pain, no shortness of breath, she is on room air, is having some diffuse aches and pains Vitals/I&O/Wt Last Vital Signs Temp 97.9 F 01/28/20 11:53 Pulse 60 01/28/20 11:53 Resp 18 01/28/20 11:53 BP 103/53 01/28/20 11:53 Pulse Ox 96 01/28/20 11:53 01/27/20 01/28/20 01/28/20 22:59 06:59 14:59 Intake Total 480 / 956 240 / 240 Output Total 2150 / 2150 1250 / 3400 1350 / 1350 Balance -1670 / -1194 -1250 / -2444 -1110 / -1110 Physical Exam Const: COMMON NORMALS: no acute distress and patient oriented x3 GENERAL APPEARANCE: ill appearing and frail appearing HENMT: COMMON NORMALS: normocephalic HEAD & SCALP: normocephalic Neck/C-Spine: COMMON NORMALS: no JVD Resp: COMMON NORMALS: normal respiratory effort, No retractions, No use of accessory muscles and clear to auscultation bilaterally AUSCULTATION: clear to auscultation bilaterally Cardio: COMMON NORMALS: no JVD, regular rate, regular rhythm, S1 normal heart sound present and S2 normal heart sound present RATE: regular rate RHYTHM: regular rhythm HEART SOUNDS: S1 normal heart sound present and S2 normal heart sound present GI: COMMON NORMALS: Normal to inspection, nondistended, normoactive bowel sounds present, Soft to palpation, non-tender, No hepatosplenomegaly present, no masses and no bruits PALPATION: Yes Soft to palpation and Yes No hepatosplenomegaly present Extremity: COMMON NORMALS: capillary refill normal, no clubbing, cyanosis or edema, no calf tenderness and no pedal edema Neuro: COMMON NORMALS: patient oriented x3 Psych: COMMON NORMALS: mental status grossly normal Urinary Catheter Management^: Barragan: Cath Placed During This Visit: yes Reason for Continuing Indwelling Catheter: Assist healing open wound Urinary Catheter Date of Insertion: 01/25/20 Urinary Catheter Time of Insertion: 19:30 Data : 01/28/20 04:30 01/28/20 04:30 Micro: Microbiology 01/25/20 19:59 Urine Culture - Final Urine,Clean Catch Klebsiella pneumoniae A&P Assessment and plan (1) COVID-19: Positive for COVID-19, is asymptomatic Status: Acute (2) ASHD (arteriosclerotic heart disease): 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 care Continue home medicatiosn including Plavix, Lasix, Imdur, losartan Status: Acute (3) Hospice care: Case management consult for placement potentially at facility as patient is unable to have a caregiver at home currently Working on [place] [facility] Status: Acute (4) COPD (chronic obstructive pulmonary disease): Not currently exacerbated Continue home doses of albuterol Status: Inactive (5) Diabetes: Uncontrolled blood sugar, currently at 464, start insulin sliding scale Status: Acute (6) Pressure ulcer: frequent repositioning, wet to dry dressing Status: Acute Qualifiers: Laterality: unspecified laterality Pressure injury location: buttock Pressure injury stage: stage 2 Qualified Code(s): L89.302 - Pressure ulcer of unspecified buttock, stage 2 (7) UTI (urinary tract infection): + UA, may be contributing to confusion Start CTX empirically and check urine cx Status: Acute Additional A&P Information Working on [place] [facility] for today Serum sodium 131, creatinine 1.2, hold Lasix for today Attestations Medical Necessity Statement*: Patient requires hospitalization weakness, deconditioning, COVID-19 positive, is on hospice, awaiting [place] [facility] Coding Level of Care Code Acute Automotive Service Advisor for [facility] Fw Diagnoses COVID-19 U07.1 ASHD (arteriosclerotic heart disease) I25.10 Hospice care Z51.5 COPD (chronic obstructive pulmonary disease) J44.9 Diabetes E11.9 Pressure ulcer L89.302 Laterality: unspecified laterality Pressure injury location: buttock Pressure injury stage: stage 2 UTI (urinary tract infection) N39.0
[2020-01-28 17:18] LABS: Glucose Point of Care 408 mg/dL (70-110)
[2020-01-28 21:15] LABS: Glucose Point of Care 326 mg/dL (70-110)
[2020-01-28] MEDS: docusate sodium 100 mg Capsule PO (21:56)
[2020-01-28] MEDS: cefTRIAXone 1,000 MG in sodium chloride 0.9% (plus) 50 ML 100 MG IV (22:15)
[2020-01-29] VITALS (11 sets, daily range): BP systolic 116–149; BP diastolic 54–78; PULSE 59–78; RESP 16–18; TEMP 36.9–37.6; O2SAT 96–98
[2020-01-29 04:53] LABS: Basophils % 0.6 %; Eosinophils # 0.1 10^3/uL (0.0-0.8); Eosinophils % 1.9 %; Hemoglobin 12.8 g/dL (11.5-15.3); Lymphocytes # 1.3 10^3/uL (0.8-4.8); Lymphocytes % 26.6 %; Mean Corpuscular Hemoglobin 28.3 pg (28.0-34.0); Mean Corpuscular Volume 88.5 fL (81-99); Mean Platelet Volume 11.5 fL (7.4-10.4); Monocytes # 0.8 10^3/uL (0.2-0.9); Monocytes % 16.1 %; Neutrophils % 54.4 %; Nucleated Red Blood Cells % 0 %; Platelet Count 155 10^3/cmm (130-400); Red Blood Count 4.52 10^6/uL (4.1-5.3); Red Cell Distribution Width 12.9 % (12.1-15.1); White Blood Count 4.8 10^3/uL (4.0-10.0)
[2020-01-29 05:13] LABS: Alanine Aminotransferase 22 U/L (0-33); Albumin Level 3.2 g/dL (3.5-5.2); Alkaline Phosphatase 65 IU/L (35-105); Anion Gap 15.5 (5-19); Aspartate Amino Transferase 22 U/L (0-32); Blood Urea Nitrogen 36 mg/dL (8-23); Calcium 8.5 mg/dL (8.5-10.5); Carbon Dioxide 25 mmol/L (22-29); Chloride 96 mmol/L (98-107); Globulin 2.8 g/dL (1.3-4.6); Glucose 129 mg/dL (65-115); Magnesium 1.7 mg/dL (1.7-2.3); Osmolality Calculated 284 mOsm/kg (285-295); Phosphorus 3.5 mg/dL (2.5-4.5); Potassium 4.5 mmol/L (3.5-5.1); Sodium 132 mmol/L (136-145); Total Bilirubin 0.3 mg/dL (0.15-1.2)
[2020-01-29 07:00] LABS: Glucose Point of Care 145 mg/dL (70-110)
[2020-01-29] MEDS: potassium chloride ER 20 mEq Tablet PO ×2 (10:10→21:40)
[2020-01-29] MEDS: isosorbide mononitrate ER 60 mg Tablet PO (10:10)
[2020-01-29] MEDS: pantoprazole DR 40 mg Tablet PO (10:11)
[2020-01-29] MEDS: metoprolol succinate ER (24 HR) 25 mg Tablet PO ×2 (10:11→17:59)
[2020-01-29] MEDS: trazodone 50 mg Tablet PO ×3 (10:11→21:40)
[2020-01-29] MEDS: allopurinol 300 mg Tablet PO (10:11)
[2020-01-29] MEDS: clopidogrel 75 mg Tablet PO (10:11)
[2020-01-29] MEDS: losartan 50 mg Tablet 25 MG PO ×2 (10:11→17:59)
[2020-01-29] MEDS: levothyroxine 150 mcg Tablet 75 MCG PO (10:11)
[2020-01-29] MEDS: citalopram 20 mg Tablet 10 MG PO (10:12)
[2020-01-29] MEDS: polyethylene glycol 3350 Pkt 17 gm PO (10:13)
--- NOTE | 2020-01-29 12:29 | P.PN_ITS ---
Subjective Subjective: Interval history: This morning patient was examined, she states that she is doing well, is wondering how her is doing, no fevers, no chills, no nausea, vomiting Vitals/I&O/Wt Last Vital Signs Temp 99.3 F 01/29/20 08:00 Pulse 60 01/29/20 08:00 Resp 16 01/29/20 08:00 BP 149/70 01/29/20 10:11 Pulse Ox 97 01/29/20 08:00 01/28/20 01/29/20 01/29/20 22:59 06:59 14:59 Intake Total 120 / 600 480 / 480 Output Total 1130 / 2480 Balance -1010 / -1880 480 / 480 Physical Exam Const: COMMON NORMALS: no acute distress and patient oriented x3 HENMT: COMMON NORMALS: normocephalic HEAD & SCALP: normocephalic Neck/C-Spine: COMMON NORMALS: no JVD Resp: COMMON NORMALS: normal respiratory effort, No retractions, No use of accessory muscles and clear to auscultation bilaterally AUSCULTATION: clear to auscultation bilaterally Cardio: COMMON NORMALS: no JVD, regular rate, regular rhythm, S1 normal heart sound present and S2 normal heart sound present RATE: regular rate RHYTHM: regular rhythm HEART SOUNDS: S1 normal heart sound present and S2 normal heart sound present GI: COMMON NORMALS: Normal to inspection, nondistended, normoactive bowel sounds present, Soft to palpation, non-tender, No hepatosplenomegaly present, no masses and no bruits PALPATION: Yes Soft to palpation and Yes No hepatosplenomegaly present Extremity: COMMON NORMALS: capillary refill normal, no clubbing, cyanosis or edema, no calf tenderness and no pedal edema Neuro: COMMON NORMALS: patient oriented x3 Psych: COMMON NORMALS: mental status grossly normal Urinary Catheter Management^: Barragan: Cath Placed During This Visit: yes Reason for Continuing Indwelling Catheter: Assist Healing of Perineal & Sacral Wounds- Incontinent Patients Urinary Catheter Date of Insertion: 01/25/20 Urinary Catheter Time of Insertion: 19:30 Data : 01/29/20 04:30 01/29/20 04:30 A&P Assessment and plan (1) COVID-19: Positive for COVID-19, is asymptomatic Status: Acute (2) ASHD (arteriosclerotic heart disease): 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 care Continue home medicatiosn including Plavix, Lasix, losartan Status: Acute (3) Hospice care: Case management consult for placement potentially at facility as patient is unable to have a caregiver at home currently Working on senior living placement Status: Acute (4) COPD (chronic obstructive pulmonary disease): Not currently exacerbated Continue home doses of albuterol Status: Inactive (5) Diabetes: Uncontrolled blood sugar, currently at 464, start insulin sliding scale Status: Acute (6) Pressure ulcer: frequent repositioning, wet to dry dressing Status: Acute Qualifiers: Laterality: unspecified laterality Pressure injury location: buttock Pressure injury stage: stage 2 Qualified Code(s): L89.302 - Pressure ulcer of unspecified buttock, stage 2 (7) UTI (urinary tract infection): + UA, may be contributing to confusion Start CTX empirically and check urine cx Status: Acute Additional A&P Information Working on senior living placement for today Serum sodium 132, creatinine 1.2 hold Lasix for today Attestations Medical Necessity Statement*: Patient requires hospitalization for COVID-19, working nursing placement Coding Level of Care Code Acute Grounds Cleaner for [facility] Fw Diagnoses COVID-19 U07.1 ASHD (arteriosclerotic heart disease) I25.10 Hospice care Z51.5 COPD (chronic obstructive pulmonary disease) J44.9 Diabetes E11.9 Pressure ulcer L89.302 Laterality: unspecified laterality Pressure injury location: buttock Pressure injury stage: stage 2 UTI (urinary tract infection) N39.0
[2020-01-29 12:34] LABS: Glucose Point of Care 150 mg/dL (70-110)
[2020-01-29 17:23] LABS: Glucose Point of Care 356 mg/dL (70-110)
[2020-01-29] MEDS: docusate sodium 100 mg Capsule PO (21:40)
[2020-01-29 21:49] LABS: Glucose Point of Care 335 mg/dL (70-110)
[2020-01-29] MEDS: morphine IR 15 mg Tablet PO (22:13)
[2020-01-29] MEDS: cefTRIAXone 1,000 MG in sodium chloride 0.9% (plus) 50 ML 100 MG IV (22:40)
[2020-01-30] VITALS (9 sets, daily range): BP systolic 129–146; BP diastolic 63–73; PULSE 59–62; RESP 16–18; TEMP 37.2–37.9; O2SAT 95–99
[2020-01-30 04:33] LABS: Basophils % 0.5 %; Eosinophils # 0.1 10^3/uL (0.0-0.8); Eosinophils % 1.2 %; Hematocrit 40.2 % (37.0-47.0); Lymphocytes # 1.1 10^3/uL (0.8-4.8); Lymphocytes % 26.5 %; Mean Corpuscular HGB Conc 32.3 g/dL (30.0-36.0); Mean Corpuscular Hemoglobin 28.6 pg (28.0-34.0); Mean Corpuscular Volume 88.4 fL (81-99); Mean Platelet Volume 11.6 fL (7.4-10.4); Monocytes # 0.7 10^3/uL (0.2-0.9); Monocytes % 17.8 %; Neutrophils # 2.22 10^3/uL (1.8-7.7); Neutrophils % 53.5 %; Nucleated Red Blood Cells % 0 %; Platelet Count 164 10^3/cmm (130-400); Red Blood Count 4.55 10^6/uL (4.1-5.3); Red Cell Distribution Width 12.8 % (12.1-15.1); White Blood Count 4.2 10^3/uL (4.0-10.0)
[2020-01-30 05:00] LABS: Alanine Aminotransferase 27 U/L (0-33); Albumin Level 3.4 g/dL (3.5-5.2); Alkaline Phosphatase 67 IU/L (35-105); Anion Gap 15.6 (5-19); Aspartate Amino Transferase 26 U/L (0-32); Blood Urea Nitrogen 30 mg/dL (8-23); Calcium 8.6 mg/dL (8.5-10.5); Carbon Dioxide 24 mmol/L (22-29); Chloride 97 mmol/L (98-107); Globulin 2.7 g/dL (1.3-4.6); Glucose 178 mg/dL (65-115); Magnesium 1.8 mg/dL (1.7-2.3); Osmolality Calculated 285 mOsm/kg (285-295); Phosphorus 3.1 mg/dL (2.5-4.5); Potassium 4.6 mmol/L (3.5-5.1); Sodium 132 mmol/L (136-145); Total Bilirubin 0.3 mg/dL (0.15-1.2); Total Protein 6.1 g/dL (6.6-8.7)
[2020-01-30 07:01] LABS: Glucose Point of Care 165 mg/dL (70-110)
[2020-01-30] MEDS: polyethylene glycol 3350 Pkt 17 gm PO (08:53)
[2020-01-30] MEDS: trazodone 50 mg Tablet PO ×3 (08:53→20:00)
[2020-01-30] MEDS: citalopram 20 mg Tablet 10 MG PO (08:53)
[2020-01-30] MEDS: isosorbide mononitrate ER 60 mg Tablet PO (08:53)
[2020-01-30] MEDS: clopidogrel 75 mg Tablet PO (08:54)
[2020-01-30] MEDS: allopurinol 300 mg Tablet PO (08:54)
[2020-01-30] MEDS: levothyroxine 150 mcg Tablet 75 MCG PO (08:54)
[2020-01-30] MEDS: potassium chloride ER 20 mEq Tablet PO ×2 (08:54→20:00)
[2020-01-30] MEDS: ciprofloxacin 500 mg Tablet PO (08:54)
[2020-01-30] MEDS: pantoprazole DR 40 mg Tablet PO (08:54)
[2020-01-30] MEDS: metoprolol succinate ER (24 HR) 25 mg Tablet PO ×2 (08:54→17:41)
[2020-01-30] MEDS: losartan 50 mg Tablet 25 MG PO ×2 (08:55→17:41)
[2020-01-30 10:51] LABS: Glucose Point of Care 341 mg/dL (70-110)
--- NOTE | 2020-01-30 11:39 | PC.SOCIAL ---
IMM Update Pg. 2 of IMM updated over the phone with patient who verbalized understanding.
--- NOTE | 2020-01-30 15:36 | PM.PN ---
Subjective Subjective: Interval history: Patient has no complaints this morning, is anxious about jail placement, had a low-grade fever overnight Vitals/I&O/Wt Last Vital Signs Temp 99.0 F 01/30/20 15:24 Pulse 62 01/30/20 15:24 Resp 18 01/30/20 15:24 BP 131/67 01/30/20 15:24 Pulse Ox 97 01/30/20 15:24 01/30/20 01/30/20 01/30/20 06:59 14:59 22:59 Intake Total 810 / 810 Output Total 600 / 1100 Balance -600 / -20 810 / 810 Physical Exam Const: COMMON NORMALS: no acute distress and patient oriented x3 HENMT: COMMON NORMALS: normocephalic HEAD & SCALP: normocephalic Neck/C-Spine: COMMON NORMALS: no JVD Resp: COMMON NORMALS: normal respiratory effort, No retractions, No use of accessory muscles and clear to auscultation bilaterally AUSCULTATION: clear to auscultation bilaterally Cardio: COMMON NORMALS: no JVD, regular rate, regular rhythm, S1 normal heart sound present and S2 normal heart sound present RATE: regular rate RHYTHM: regular rhythm HEART SOUNDS: S1 normal heart sound present and S2 normal heart sound present GI: COMMON NORMALS: Normal to inspection, nondistended, normoactive bowel sounds present, Soft to palpation, non-tender, No hepatosplenomegaly present, no masses and no bruits PALPATION: Yes Soft to palpation and Yes No hepatosplenomegaly present Extremity: COMMON NORMALS: capillary refill normal, no clubbing, cyanosis or edema, no calf tenderness and no pedal edema Neuro: COMMON NORMALS: patient oriented x3 Psych: COMMON NORMALS: mental status grossly normal Urinary Catheter Management^: Barragan: Cath Placed During This Visit: yes Reason for Continuing Indwelling Catheter: Assist Healing of Perineal & Sacral Wounds- Incontinent Patients Urinary Catheter Date of Insertion: 01/25/20 Urinary Catheter Time of Insertion: 19:30 Data : 01/30/20 04:23 01/30/20 04:23 A&P Assessment and plan (1) COVID-19: Positive for COVID-19, is asymptomatic low-grade fever this morning 100.2, currently asymptomatic, continue to monitor Status: Acute (2) ASHD (arteriosclerotic heart disease): 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 care Continue home medicatiosn including Plavix, Lasix, losartan Status: Acute (3) Hospice care: Case management consult for placement potentially at facility as patient is unable to have a caregiver at home currently Working on jail placement Status: Acute (4) COPD (chronic obstructive pulmonary disease): Not currently exacerbated Continue home doses of albuterol Status: Inactive (5) Diabetes: Uncontrolled blood sugar, currently at 464, start insulin sliding scale Status: Acute (6) Pressure ulcer: frequent repositioning, wet to dry dressing Status: Acute Qualifiers: Laterality: unspecified laterality Pressure injury location: buttock Pressure injury stage: stage 2 Qualified Code(s): L89.302 - Pressure ulcer of unspecified buttock, stage 2 (7) UTI (urinary tract infection): + UA positive for Klebsiella pneumoniae Has been on Rocephin for the last 5 days Had low-grade fevers early this morning, 100.2 Continue to monitor, stop antibiotic therapy, continue to monitor for fevers, monitor respiratory status If she has recurrent fevers, will do repeat urine cultures, blood cultures, chest x-rays Status: Acute Additional A&P Information Working on jail placement for today Serum sodium 132, creatinine 1.2 hold Lasix for today Attestations Medical Necessity Statement*: Patient requires hospitalization for COVID-19, awaiting jail placement Coding Level of Care Code Acute Obgyn Nurse for [facility] Diagnoses COVID-19 U07.1 ASHD (arteriosclerotic heart disease) I25.10 Hospice care Z51.5 COPD (chronic obstructive pulmonary disease) J44.9 Diabetes E11.9 Pressure ulcer L89.302 Laterality: unspecified laterality Pressure injury location: buttock Pressure injury stage: stage 2 UTI (urinary tract infection) N39.0
--- NOTE | 2020-01-30 15:38 | XRR_ITS ---
PROCEDURE INFORMATION: Exam: XR Chest, 1 View Exam date and time: 01/30/2020 3:45 PM Age: 84 years old Clinical indication: Condition or disease; Other: Covid; Fever; Additional info: Fever, covid 19 TECHNIQUE: Imaging protocol: XR of the chest Views: 1 view. COMPARISON: CR XR chest 1V portable [id number] 01/25/2020 3:35 PM FINDINGS: Tubes, catheters and devices: A pacemaker device is present, and its leads are in appropriate position. Lungs: There is interstitial prominence compatible with fibrosis, bronchitis, viral pneumonitis or mild interstitial edema. No lobar consolidation. Pleural space: There is blunting the left costophrenic angle that may reflect pleural thickening or trace pleural effusion. There is no pneumothorax. Heart/Mediastinum: The heart is enlarged. Bones/joints: No acute abnormality. XR/XR chest 1V portable [id number] IMPRESSION: There is interstitial prominence compatible with fibrosis, bronchitis, viral pneumonitis or mild interstitial edema.
[2020-01-30 16:58] LABS: Glucose Point of Care 289 mg/dL (70-110)
--- NOTE | 2020-01-30 17:00 | PC.RESP ---
Pulmonary Rehab information sent to patient.
[2020-01-30] MEDS: morphine IR 15 mg Tablet PO (17:40)
[2020-01-30 17:49] LABS: Add Urine Microscopic? NO
[2020-01-30 18:03] LABS: Sulfosalicylic Acid Urine Negative (Negative); Urine Appearance Clear (CLEAR); Urine Color Yellow (Yellow); pH Urine 8 (5-7)
[2020-01-30 18:04] LABS: Bilirubin Urine Neg (Negative); Blood Urine Neg (Negative); Glucose Urine UA Norm (Normal); Ketones Urine Negative (Negative); Leukocyte Esterase Urine Negative (Negative); Nitrate Urine Negative (Negative); Protein Urine Neg (Negative); Urobilinogen Urine Norm (Negative)
[2020-01-30 18:09] LABS: Procalcitonin 0.13 ng/mL (0-0.5)
[2020-01-30 18:20] LABS: C Reactive Protein 15.6 mg/L (0.0-4.9)
[2020-01-30] MEDS: cyclobenzaprine 10 mg Tablet PO (19:59)
[2020-01-30] MEDS: docusate sodium 100 mg Capsule PO (20:00)
[2020-01-30 20:38] LABS: Glucose Point of Care 421 mg/dL (70-110)
[2020-01-31] VITALS (11 sets, daily range): BP systolic 121–166; BP diastolic 68–75; PULSE 60–62; RESP 16–22; TEMP 37–37.3; O2SAT 94–100
[2020-01-31 05:07] LABS: Basophils % 0.6 %; Eosinophils % 0.6 %; Hematocrit 35.9 % (37.0-47.0); Hemoglobin 11.8 g/dL (11.5-15.3); Lymphocytes # 1.2 10^3/uL (0.8-4.8); Mean Corpuscular HGB Conc 32.9 g/dL (30.0-36.0); Mean Corpuscular Hemoglobin 28.8 pg (28.0-34.0); Mean Corpuscular Volume 87.6 fL (81-99); Mean Platelet Volume 11.9 fL (7.4-10.4); Monocytes # 0.6 10^3/uL (0.2-0.9); Monocytes % 17.3 %; Neutrophils # 1.76 10^3/uL (1.8-7.7); Neutrophils % 48.9 %; Nucleated Red Blood Cells % 0 %; Platelet Count 154 10^3/cmm (130-400); Red Cell Distribution Width 12.7 % (12.1-15.1); White Blood Count 3.6 10^3/uL (4.0-10.0)
[2020-01-31 05:36] LABS: Alanine Aminotransferase 23 U/L (0-33); Albumin Level 3.1 g/dL (3.5-5.2); Alkaline Phosphatase 58 IU/L (35-105); Anion Gap 16.7 (5-19); Aspartate Amino Transferase 20 U/L (0-32); Blood Urea Nitrogen 24 mg/dL (8-23); Calcium 8.3 mg/dL (8.5-10.5); Carbon Dioxide 21 mmol/L (22-29); Chloride 99 mmol/L (98-107); Globulin 2.5 g/dL (1.3-4.6); Glucose 197 mg/dL (65-115); Magnesium 1.9 mg/dL (1.7-2.3); Osmolality Calculated 284 mOsm/kg (285-295); Potassium 4.7 mmol/L (3.5-5.1); Sodium 132 mmol/L (136-145); Total Bilirubin 0.4 mg/dL (0.15-1.2); Total Protein 5.6 g/dL (6.6-8.7)
[2020-01-31 05:37] LABS: C Reactive Protein 14.7 mg/L (0.0-4.9)
[2020-01-31 05:48] LABS: NT Pro B Type Natriuretic Pept 1015 pg/mL (0-450); Procalcitonin 0.11 ng/mL (0-0.5)
[2020-01-31 06:02] LABS: Creatine Phosphokinase 19 U/L (26-192)
[2020-01-31 06:58] LABS: Glucose Point of Care 181 mg/dL (70-110)
[2020-01-31 08:31] LABS: Coronavirus Lab Test PTC Positive
[2020-01-31] MEDS: allopurinol 300 mg Tablet PO (08:56)
[2020-01-31] MEDS: trazodone 50 mg Tablet PO (08:56)
[2020-01-31] MEDS: metoprolol succinate ER (24 HR) 25 mg Tablet PO (08:56)
[2020-01-31] MEDS: morphine IR 15 mg Tablet PO (08:56)
[2020-01-31] MEDS: pantoprazole DR 40 mg Tablet PO (08:56)
[2020-01-31] MEDS: levothyroxine 150 mcg Tablet 75 MCG PO (08:56)
[2020-01-31] MEDS: losartan 50 mg Tablet 25 MG PO (08:57)
[2020-01-31] MEDS: potassium chloride ER 20 mEq Tablet PO (08:58)
[2020-01-31] MEDS: clopidogrel 75 mg Tablet PO (08:58)
[2020-01-31] MEDS: isosorbide mononitrate ER 60 mg Tablet PO (08:58)
[2020-01-31] MEDS: citalopram 20 mg Tablet 10 MG PO (08:58)
[2020-01-31] MEDS: polyethylene glycol 3350 Pkt 17 gm PO (08:58)
--- NOTE | 2020-01-31 09:00 | PC.SOCIAL ---
IMM Update Pg. 2 of IMM updated. Initialed, dated, and timed, and placed in chart. Copy provided to nursing staff and asked that they take in to patient.
--- NOTE | 2020-01-31 09:54 | PC.OT ---
OT note: Discussed with SS, pt is on hospice. Will discharge from OT at this time.
[2020-01-31] MEDS: levofloxacin-dextrose 5 % 750 MG/150 ML PREMIX 100 MG IV (09:57)
[2020-01-31] MEDS: FUROsemide 40 mg Tablet 60 MG PO (09:57)
[2020-01-31 10:48] LABS: Glucose Point of Care 370 mg/dL (70-110)
[2020-01-31] MEDS: cyclobenzaprine 10 mg Tablet PO (11:09)
--- NOTE | 2020-01-31 12:31 | P.DS_ITS ---
Discharge Providers Date of Admission: 01/25/20 20:05 Date of Discharge: January 31, 2020 Attending Provider at Admission: Rianna Vallejo MD Attending Provider at Discharge: Henrique Aburto MD Primary Care Provider: Donte Torres MD Diagnoses at Discharge Discharge Diagnosis (1) COVID-19: Status: Acute (2) ASHD (arteriosclerotic heart disease): Status: Acute (3) Hospice care: Status: Acute (4) COPD (chronic obstructive pulmonary disease): Status: Inactive (5) Diabetes: Status: Acute (6) Pressure ulcer: Status: Acute Qualifiers: Laterality: unspecified laterality Pressure injury location: buttock Pressure injury stage: stage 2 Qualified Code(s): L89.302 - Pressure ulcer of unspecified buttock, stage 2 (7) UTI (urinary tract infection): Status: Acute Reason for Visit Reason for Visit: CONFUSION Hospital Course Hospital Course This is a 84-year-old female with a past medical history of hypertension, insulin-dependent type 2 diabetes mellitus, ischemic cardiomyopathy, combined systolic and diastolic heart failure, paroxysmal atrial fibrillation not on anticoagulation, hypothyroidism, sick sinus syndrome status post pacemaker placement, CKD stage II-III, 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, currently on hospice Who presents to [facility] due to weakness, fatigue Patient was admitted to [facility], COVID-19 positive, saturating in the high 90s on room air, low-grade fevers, did not qualify for remdesivir or D ecadron, clinically remained stable, discharged to [facility] on hospice Near the tail end of her admission, she did develop low-grade fevers, chest x- ray is suspicious for early developing left lower lobe pneumonia, I have preemptively discharge her on Levaquin 750 for 6 remaining days, inhaler therapy, monitor for fevers Patient also had a UTI during her hospitalization, finished Rocephin as inpatient Patient also had hyponatremia and acute kidney injury during her hospitalization, Lasix therapy has been decreased to 60 mg twice daily Physical Exam Const: COMMON NORMALS: no acute distress and patient oriented x3 HENMT: COMMON NORMALS: normocephalic HEAD & SCALP: normocephalic Neck/C-Spine: COMMON NORMALS: no JVD Resp: COMMON NORMALS: normal respiratory effort, No retractions, No use of accessory muscles and clear to auscultation bilaterally AUSCULTATION: clear to auscultation bilaterally Cardio: COMMON NORMALS: no JVD, regular rate, regular rhythm, S1 normal heart sound present and S2 normal heart sound present RATE: regular rate RHYTHM: regular rhythm HEART SOUNDS: S1 normal heart sound present and S2 normal heart sound present GI: COMMON NORMALS: Normal to inspection, nondistended, normoactive bowel sounds present, Soft to palpation, non-tender, No hepatosplenomegaly present, no masses and no bruits PALPATION: Yes Soft to palpation and Yes No hepatosplenomegaly present Extremity: COMMON NORMALS: capillary refill normal, no clubbing, cyanosis or edema, no calf tenderness and no pedal edema Neuro: COMMON NORMALS: patient oriented x3 Psych: COMMON NORMALS: mental status grossly normal Urinary Catheter Management^: Barragan: Cath Placed During This Visit: yes Reason for Continuing Indwelling Catheter: Assist Healing of Perineal & Sacral Wounds- Incontinent Patients Urinary Catheter Date of Insertion: 01/25/20 Urinary Catheter Time of Insertion: 19:30 Discharge Data Data Completed and Pending: Completed Studies During Hospitalization Category Date Time Status CT abdomen pelvis wo con [id number] Urge nt Cat Scan 01/25/20 15:34 Completed XR chest 1V shani ble [id number] Routine Exams 01/30/20 15:38 Completed XR chest 1V shani ble [id number] Urgent Exams 01/25/20 15:34 Completed Pending at discharge Category Date Time Status Blood Culture Sta t Lab 01/30/20 04:50 Results C Reactive Protei n AM LABS Lab 02/01/20 04:00 Ordered C Reactive Protei n AM LABS Lab 02/02/20 04:00 Ordered Creatine Phosphok inase AM LABS Lab 02/01/20 04:00 Ordered Creatine Phosphok inase AM LABS Lab 02/02/20 04:00 Ordered NT Pro B Type Iesha riuretic Pept QAM Lab 02/01/20 06:00 Ordered NT Pro B Type Iesha riuretic Pept QAM Lab 02/02/20 06:00 Ordered Procalcitonin AM LABS Lab 02/01/20 04:00 Ordered Procalcitonin AM LABS Lab 02/02/20 04:00 Ordered Urine Culture Sta t Lab 01/30/20 16:30 Received Labs from last 24 hours 01/31/20 01/31/20 01/31/20 10:29 06:28 04:55 WBC RBC Hgb Hct MCV MCH MCHC RDW Plt Count MPV Neut % (Auto) Lymph % (Auto) Loving % (Auto) Eos % (Auto) Baso % (Auto) Neut # (Auto) Lymph # (Auto) Loving # (Auto) Eos # (Auto) Baso # (Auto) Nucleated RBC % (a uto) Nucleated RBCs # Sodium Potassium Chloride Carbon Dioxide Anion Gap BUN Creatinine GFR Calculation Glucose POC Glucose 370 181 Calculated Osmolal ity Calcium Phosphorus Magnesium Total Bilirubin AST ALT Alkaline Phosphata se Creatine Kinase 19 L C-Reactive Protein NT-Pro-B Natriuret Pep 1015 H Total Protein Albumin Globulin Procalcitonin 0.11 Urine Color Urine Appearance Urine pH Ur Specific Gravit y Urine Protein Urine Glucose (UA) Urine Ketones Urine Blood Urine Nitrate Urine Bilirubin Prot Sulfosalicyli c Acd Urine Urobilinogen Ur Leukocyte Daija ase Nasal/Oral COVID-1 9 PCR 01/31/20 01/31/20 01/31/20 04:55 04:55 04:55 WBC 3.6 L RBC 4.10 Hgb 11.8 Hct 35.9 L MCV 87.6 MCH 28.8 MCHC 32.9 RDW 12.7 Plt Count 154 MPV 11.9 H Neut % (Auto) 48.9 Lymph % (Auto) 32.0 Loving % (Auto) 17.3 Eos % (Auto) 0.6 Baso % (Auto) 0.6 Neut # (Auto) 1.76 L Lymph # (Auto) 1.2 Loving # (Auto) 0.6 Eos # (Auto) 0.0 Baso # (Auto) 0.0 Nucleated RBC % (a uto) 0 Nucleated RBCs # 0.0 Sodium 132 L Potassium 4.7 Chloride 99 Carbon Dioxide 21 L Anion Gap 16.7 BUN 24 H Creatinine 1.1 H GFR Calculation Not Reportable Glucose 197 H POC Glucose Calculated Osmolal ity 284 L Calcium 8.3 L Phosphorus 3.0 Magnesium 1.9 Total Bilirubin 0.4 AST 20 ALT 23 Alkaline Phosphata se 58 Creatine Kinase C-Reactive Protein 14.7 H NT-Pro-B Natriuret Pep Total Protein 5.6 L Albumin 3.1 L Globulin 2.5 Procalcitonin Urine Color Urine Appearance Urine pH Ur Specific Gravit y Urine Protein Urine Glucose (UA) Urine Ketones Urine Blood Urine Nitrate Urine Bilirubin Prot Sulfosalicyli c Acd Urine Urobilinogen Ur Leukocyte Daija ase Nasal/Oral COVID-1 9 PCR 01/30/20 01/30/20 01/30/20 20:32 16:51 16:51 WBC RBC Hgb Hct MCV MCH MCHC RDW Plt Count MPV Neut % (Auto) Lymph % (Auto) Loving % (Auto) Eos % (Auto) Baso % (Auto) Neut # (Auto) Lymph # (Auto) Loving # (Auto) Eos # (Auto) Baso # (Auto) Nucleated RBC % (a uto) Nucleated RBCs # Sodium Potassium Chloride Carbon Dioxide Anion Gap BUN Creatinine GFR Calculation Glucose POC Glucose 421 289 Calculated Osmolal ity Calcium Phosphorus Magnesium Total Bilirubin AST ALT Alkaline Phosphata se Creatine Kinase C-Reactive Protein 15.6 H NT-Pro-B Natriuret Pep Total Protein Albumin Globulin Procalcitonin 0.13 Urine Color Urine Appearance Urine pH Ur Specific Gravit y Urine Protein Urine Glucose (UA) Urine Ketones Urine Blood Urine Nitrate Urine Bilirubin Prot Sulfosalicyli c Acd Urine Urobilinogen Ur Leukocyte Daija ase Nasal/Oral COVID-1 9 PCR 01/30/20 01/26/20 16:30 10:22 WBC RBC Hgb Hct MCV MCH MCHC RDW Plt Count MPV Neut % (Auto) Lymph % (Auto) Loving % (Auto) Eos % (Auto) Baso % (Auto) Neut # (Auto) Lymph # (Auto) Loving # (Auto) Eos # (Auto) Baso # (Auto) Nucleated RBC % (a uto) Nucleated RBCs # Sodium Potassium Chloride Carbon Dioxide Anion Gap BUN Creatinine GFR Calculation Glucose POC Glucose Calculated Osmolal ity Calcium Phosphorus Magnesium Total Bilirubin AST ALT Alkaline Phosphata se Creatine Kinase C-Reactive Protein NT-Pro-B Natriuret Pep Total Protein Albumin Globulin Procalcitonin Urine Color Yellow Urine Appearance Clear Urine pH 8 H Ur Specific Gravit y 1.010 Urine Protein Neg Urine Glucose (UA) Norm Urine Ketones Negative Urine Blood Neg Urine Nitrate Negative Urine Bilirubin Neg Prot Sulfosalicyli c Acd Negative Urine Urobilinogen Norm Ur Leukocyte Daija ase Negative Nasal/Oral COVID-1 9 PCR Positive Vitals: Last Vital Signs Temp 98.7 F 01/31/20 12:00 Pulse 60 01/31/20 12:00 Resp 18 12/01/20 12:00 BP 122/75 01/31/20 12:00 Pulse Ox 98 01/31/20 12:00 Discharge Plan Discharge Patient Disposition: Home Condition: Stable Prescriptions: New potassium chloride [Klor-Con M20] 20 mEq Tablet,Er Particles/Crystals 20 meq PO Q12H 30 Days Qty: 60 RF: 0 furosemide 40 mg Tablet 60 mg PO BID 30 Days Qty: 90 RF: 0 levofloxacin 750 mg tablet 750 mg PO DAILY 6 Days Qty: 6 RF: 0 Continued clopidogrel 75 mg tablet 75 mg PO DAILY RF: 0 albuterol sulfate 2.5 mg /3 mL (0.083 %) solution for nebulization 2.5 mg INHALATION Q4H PRN (Reason: Shortness Of Breath) RF: 0 losartan 25 mg tablet 25 mg PO BID Qty: 60 RF: 5 pantoprazole 40 mg tablet,delayed release (DR/EC) 40 mg PO DAILY Qty: 14 RF: 12 allopurinol 300 mg tablet 300 mg PO DAILY Qty: 90 RF: 3 isosorbide mononitrate 60 mg tablet extended release 24 hr 60 mg PO DAILY 90 Days Qty: 90 RF: 3 trazodone 50 mg tablet 50 mg PO TID Qty: 270 RF: 3 citalopram [Celexa] 10 mg tablet 10 mg PO DAILY Qty: 14 RF: 12 glimepiride 4 mg tablet See Rx Instructions .ROUTE .COMPLEX Qty: 60 RF: 0 Advil 1 - 2 tab PO Q6H PRN (Reason: Pain) RF: 0 Anusol-HC 2.5 % Cream With Perineal Applicator See Rx Instructions .ROUTE .COMPLEX RF: 0 Ativan 0.5 mg Tablet 0.5 mg PO Q6H PRN (Reason: Anxiety) RF: 0 promethazine 25 mg Tablet 25 mg PO Q4H PRN (Reason: V/N) RF: 0 nitroglycerin 0.4 mg Tablet, Sublingual 0.4 mg SUBLINGUAL Q5M PRN (Reason: CHEST PAINS) RF: 0 metoprolol succinate 25 mg Tablet Extended Release 24 Hr 25 mg PO BID RF: 0 Miralax 17 gram/dose Powder 17 g PO DAILY RF: 0 morphine 15 mg Tablet 15 mg PO Q8H PRN (Reason: Pain) RF: 0 morphine 30 mg tablet extended release 30 mg PO BID RF: 0 levothyroxine 75 mcg tablet 75 mcg PO DAILY RF: 0 docusate sodium 100 mg capsule 100 mg PO BEDTIME RF: 0 bisacodyl 5 mg tablet 5 - 10 mg PO DAILY PRN (Reason: constipation) RF: 0 Discontinued furosemide 80 mg tablet 80 mg PO BID Qty: 60 RF: 3 Discharge Orders: Discharge Order (Routine); Ordered 01/31/20 Ordered By: Henrique Aburto Discharge Diet: Cardiac Discharge Activity: Resume usual activity Discharge Attestations Time Spent in Discharge Care*: less than 30 min Quality Metrics Clinical Quality Measures During this hospital stay, did patient experience: None Coding Level of Care Code Acute Buckle [employer] Machine for g Fwd Diagnoses COVID-19 U07.1 ASHD (arteriosclerotic heart disease) I25.10 Hospice care Z51.5 COPD (chronic obstructive pulmonary disease) J44.9 Diabetes E11.9 Pressure ulcer L89.302 Laterality: unspecified laterality Pressure injury location: buttock Pressure injury stage: stage 2 UTI (urinary tract infection) N39.0
[2020-01-31] MEDS: morphine ER (12 HR) 30 mg tablet PO (14:00)
[2020-01-31 16:44] LABS: Glucose Point of Care 336 mg/dL (70-110)
--- NOTE | 2020-01-31 17:30 | PC.NURSE ---
iv taken out and intact. pt transferred to wheelchair and taken to ambulance bay.
== END 2020-01-31 17:31 | disposition hospice, inpatient (51) | DRG 689 ==
LOC: ER 16:37 → MEDSURG 20:37
PROVIDERS: Admitting Provider Student in an Organized Health Care Education/Training Program; Emergency Provider Family Medicine; PCP Internal Medicine; Visit Provider Family Medicine
DX: N39.0 Urinary tract infection, site not specified (principal); U07.1 COVID-19; J12.89 Other viral pneumonia; I13.0 Hypertensive heart and chronic kidney disease with heart failure and stage 1 through stage 4 chronic kidney disease, or unspecified chronic kidney disease; I50.42 Chronic combined systolic (congestive) and diastolic (congestive) heart failure; E87.1 Hypo-osmolality and hyponatremia; N17.9 Acute kidney failure, unspecified; E11.22 Type 2 diabetes mellitus with diabetic chronic kidney disease; E11.65 Type 2 diabetes mellitus with hyperglycemia; N18.30 Chronic kidney disease, stage 3 unspecified; I25.5 Ischemic cardiomyopathy; I48.0 Paroxysmal atrial fibrillation; E03.9 Hypothyroidism, unspecified; Z95.0 Presence of cardiac pacemaker; Z99.81 Dependence on supplemental oxygen; L89.152 Pressure ulcer of sacral region, stage 2; I25.10 Atherosclerotic heart disease of native coronary artery without angina pectoris; J44.9 Chronic obstructive pulmonary disease, unspecified; Z79.02 Long term (current) use of antithrombotics/antiplatelets; Z79.51 Long term (current) use of inhaled steroids; Z79.84 Long term (current) use of oral hypoglycemic drugs; Z79.891 Long term (current) use of opiate analgesic
CPT/HCPCS: 12345; 36415; 36416; 51702; 71045; 74176; 80053; 81001; 81003; 82550; 82962; 83036; 83605; 83690; 83735; 83880; 84100; 84145; 84443; 85025; 86140; 87040; 87077; 87086; 87186; 87426; 87635; 96372; 97110; 97161; 97166; 97530; 97535; 99283; J0696; J1815; J1956; J3370; J7050; Q0169

== ENCOUNTER 2020-02-20 09:37 | Emergency (ER) | payer OTHER, SELFPAY ==
[2020-02-20 09:39] VITALS: BP 00/00; PULSE 0; RESP 0; O2SAT 0; BMI 30.4
--- NOTE | 2020-02-20 09:47 | W.ED.GENADLT ---
HPI - General Adult General: Chief complaint: General Medical Stated complaint: UNRESPONSIVE Time Seen by Provider: 02/20/20 09:47 History of Present Illness: HPI narrative: 84-year-old female brought into the emergency room from local skilled nursing. She had been her normal self this morning and suddenly began having difficulty breathing. EMS was called on their arrival there she was in agonal breathing in route she went into respiratory arrest patient is a known no code. She had Covid approximately 2 weeks ago. She also has a history of heart disease and diabetes mellitus. She had gone to [facility] in route which was only 3 blocks from the hospital. She is also in complete respiratory arrest. No resuscitative efforts had been initiated due to her Do Not Recussitate status. Onset (ago): minute(s) PFSH ED PFSH: Medical History (Updated 02/20/20 @ 09:51 by Ernesto Barrett DO) ASHD (arteriosclerotic heart disease) Cardiomyopathy COPD (chronic obstructive pulmonary disease) Diabetes 1.5, managed as type 2 HTN (hypertension) Hypothyroidism Obesity SSS (sick sinus syndrome) Surgical History (Updated 01/25/20 @ 22:24 by Rianna Vallejo MD) Status cardiac pacemaker Family History Father CAD (coronary artery disease) Hypertension Myocardial infarction Mother CAD (coronary artery disease) Hypertension Myocardial infarction Physical Exam Narrative: EXAM NARRATIVE: Patient did complete respiratory arrest dusky reddy cyanotic appearance cool to the touch. Resp: OTHER: No respiratory effort no breath sounds noted Cardio: OTHER: No auscultated by heart sounds. Bedside ultrasound shows no cardiac activity Course Vital Signs: Vital signs: Vital Signs Pulse Rate 0 L 02/20/20 09:39 Respiratory Rate 0 L 02/20/20 09:39 Blood Pressure 00/00 02/20/20 09:39 Pulse Oximetry 0 L 02/20/20 09:39 MDM - General Adult MDM Narrative: Medical decision making narrative: Based on history suspect the patient most likely had a large pulmonary emboli which is a known risk factor in the recovery phase of Covid. Suspect it is related to that. Due to the patient's Do Not Recussitate status we confirmed PA by ultrasound also placed a magnet on the chest patient continues to have pacer driven cardiac spikes but no auscultated will or confirmed ultrasound cardiac activity. Patient considered on arrival. Discharge Plan Discharge Patient Disposition: Clinical Impression: Pulmonary emboli, COVID-19, ASHD (arteriosclerotic heart disease), Diabetes Condition: Stable Prescriptions: No Action clopidogrel 75 mg tablet 75 mg PO DAILY RF: 0 albuterol sulfate 2.5 mg /3 mL (0.083 %) solution for nebulization 2.5 mg INHALATION Q4H PRN (Reason: Shortness Of Breath) RF: 0 losartan 25 mg tablet 25 mg PO BID Qty: 60 RF: 5 pantoprazole 40 mg tablet,delayed release (DR/EC) 40 mg PO DAILY Qty: 14 RF: 12 allopurinol 300 mg tablet 300 mg PO DAILY Qty: 90 RF: 3 isosorbide mononitrate 60 mg tablet extended release 24 hr 60 mg PO DAILY 90 Days Qty: 90 RF: 3 trazodone 50 mg tablet 50 mg PO TID Qty: 270 RF: 3 citalopram [Celexa] 10 mg tablet 10 mg PO DAILY Qty: 14 RF: 12 glimepiride 4 mg tablet See Rx Instructions .ROUTE .COMPLEX Qty: 60 RF: 0 Advil 1 - 2 tab PO Q6H PRN (Reason: Pain) RF: 0 Anusol-HC 2.5 % Cream With Perineal Applicator See Rx Instructions .ROUTE .COMPLEX RF: 0 Ativan 0.5 mg Tablet 0.5 mg PO Q6H PRN (Reason: Anxiety) RF: 0 promethazine 25 mg Tablet 25 mg PO Q4H PRN (Reason: V/N) RF: 0 nitroglycerin 0.4 mg Tablet, Sublingual 0.4 mg SUBLINGUAL Q5M PRN (Reason: CHEST PAINS) RF: 0 metoprolol succinate 25 mg Tablet Extended Release 24 Hr 25 mg PO BID RF: 0 Miralax 17 gram/dose Powder 17 g PO DAILY RF: 0 morphine 15 mg Tablet 15 mg PO Q8H PRN (Reason: Pain) RF: 0 morphine 30 mg tablet extended release 30 mg PO BID RF: 0 levothyroxine 75 mcg tablet 75 mcg PO DAILY RF: 0 docusate sodium 100 mg capsule 100 mg PO BEDTIME RF: 0 bisacodyl 5 mg tablet 5 - 10 mg PO DAILY PRN (Reason: constipation) RF: 0 furosemide 40 mg Tablet 60 mg PO BID 30 Days Qty: 90 RF: 0 Klor-Con M20 20 mEq Tablet,Er Particles/Crystals 20 meq PO Q12H 30 Days Qty: 60 RF: 0 Referrals: Donte Torres MD [Primary Care Provider] - Coding Level of Care Code ED [employer] for Jonathon Toribio
--- NOTE | 2020-02-20 09:52 | PC.NURSE ---
[facility] called they released the body for them and saving sight. Mingo Bueno called and he to released the body.
[2020-02-20 11:06] VITALS: BP 00/00; PULSE 0; RESP 0
== END 2020-02-20 11:07 | disposition expired ==
LOC: ER 10:19
PROVIDERS: Emergency Provider Family Medicine; PCP Internal Medicine
DX: U07.1 COVID-19 (principal); I26.99 Other pulmonary embolism without acute cor pulmonale; I25.10 Atherosclerotic heart disease of native coronary artery without angina pectoris; J44.9 Chronic obstructive pulmonary disease, unspecified; E13.9 Other specified diabetes mellitus without complications; I10 Essential (primary) hypertension; Z95.0 Presence of cardiac pacemaker
CPT/HCPCS: 12345; 99281